=== PATIENT | female | born 1990 | race African-American/Black ===

== ENCOUNTER 2018-10-13 11:03 | Emergency (ER) | payer OTHER ==
[~2018-10-13] VITALS: Ht 167.6 cm; Wt 77.1 kg
[2018-10-13 11:13] VITALS: Ht 167.6 cm; Wt 77.1 kg
[2018-10-13 13:29] VITALS: BP 130/86
== END 2018-10-13 13:29 | disposition home or self-care (01) ==
LOC: EDBD 11:03 → ED 11:03
DX: F41.9 Anxiety disorder, unspecified (principal)